=== PATIENT | male | born 1955 | race Caucasian/White ===

== ENCOUNTER → 2016-12-28 | Outpatient (CLI) | payer OTHER, BC ==
[~2016-12-28] MED LIST: GADAVIST IV PRN
--- NOTE | 2016-12-28 11:56 | DIAGNOSTIC IMAGING REPORT ---
Brain MRI WITH AND WITHOUT CONTRAST HISTORY: R27.0 [id number] Slurred [id number] Spinocerebellar ataxia MRI TECHNIQUE: Multiplanar multisequence MRI of the brain was performed both before and after the intravenous administration of contrast. COMPARISON STUDY: Brain MRI 03/20/2013. FINDINGS: No areas of restricted diffusion to suggest acute infarction. Small retention cysts within the right maxillary sinus. No fluid levels within the paranasal sinuses. The mastoid air cells are clear. The orbits are unremarkable. The major vascular flow-voids at the skull base are well-maintained. The ventricles and sulci demonstrate mild age-related involutional changes. There is no mass, hematoma, midline shift. 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 No abnormal enhancement. No change in the increased T2 signal within the bilateral middle cerebellar peduncles. IMPRESSION: 1. Overall, no significant change compared to the prior study. No acute intracranial abnormality. 2. 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 Electronically signed by: Russ Gary M.D. 12/28/2016 11:55 AM Dictated Date/Time: 12/28/2016 11:46 AM
== END | disposition home or self-care (01) ==
LOC: C.MRI 10:47
PROVIDERS: ATTEND Psychiatry & Neurology Neurology
DX: G11.8 Other hereditary ataxias (principal); R27.0 Ataxia, unspecified; R47.81 Slurred speech; G31.9 Degenerative disease of nervous system, unspecified

== ENCOUNTER → 2016-12-30 | Outpatient (CLI) | payer OTHER, BC ==
--- NOTE | 2016-12-30 17:11 | EEG Procedure Note ---
EEG Procedure Note Date of Service Dec 30, 2016. Start / End Times Start Time: 1:36 PM End Time: 1:56 PM Referring Physician Amadeo Moore History This is a 61-year-old male who presents with unresponsive episode/staring spells. EEG for further evaluation of possible seizure etiology. Description This is a 21 electrode EEG with a single channel dedicated to limited EKG. The electrodes were placed in accordance with the International 10-20 system. At the start of the recording the patient was in an awake state. Background was well organized and composed of symmetric mixed alpha/beta and excess theta frequencies. There was a symmetric well-formed moderate amplitude 7-8 Hz posterior dominant rhythm that was reactive to eye opening and closure. Hyperventilation & intermittent photic stimulation was not done. There was no state changes or sleep transients. Interpretation This is an abnormal routine EEG secondary to mild background theta slowing There was no electrographic seizures or epileptiform discharges. Clinical Correlation This EEG indicates mild encephalopathy of nonspecific etiology.
== END | disposition home or self-care (01) ==
LOC: C.NEUR 13:08
PROVIDERS: ATTEND Psychiatry & Neurology Neurology
DX: R41.89 Other symptoms and signs involving cognitive functions and awareness (principal)